=== PATIENT | male | born 2000 | race Two or more races ===

== ENCOUNTER 2020-08-02 05:35 | Emergency (ER) | payer MEDICAID, SELFPAY ==
[~2020-08-02] VITALS: Ht 172.7 cm; Wt 74.8 kg
[2020-08-02] MEDS ORDERED: CARBAMIDE PEROXIDE EAR DROPS 6.5%, 15ML LEFT EAR ONE (06:00)
[2020-08-02] MEDS ORDERED: CARBAMIDE PEROXIDE EAR DROPS 6.5%, 15ML ONE (06:15)
--- NOTE | 2020-08-02 06:29 | NUR ---
PT HAS C/O LEFT EAR DECREASED HEARING WITH DISCOMFORT. PT MEDICATED PER MAY.
--- NOTE | 2020-08-02 06:50 | NUR ---
REPORT TO JOEL FOWLER
--- NOTE | 2020-08-02 06:54 | NUR ---
Report from JANETH Mendoza. Pt laying in bed attempting to drain L ear of water. Will recheck.
[2020-08-02 07:33] VITALS: BP 131/79
== END 2020-08-02 07:37 | disposition home or self-care (01) ==
LOC: ED 06:35
DX: H60.502 Unspecified acute noninfective otitis externa, left ear (principal); H61.22 Impacted cerumen, left ear
CPT/HCPCS: 99283

== ENCOUNTER 2020-08-07 23:47 | Emergency (ER) | payer SELFPAY ==
[~2020-08-07] VITALS: Ht 172.7 cm; Wt 75.8 kg
[2020-08-08 00:04] VITALS: BP 135/87
--- NOTE | 2020-08-08 00:56 | NUR ---
PT TOLD RN THAT HE IS LEAVING
== END 2020-08-08 00:58 | disposition left against medical advice (07) ==
LOC: ED 08-08 00:40
DX: R51.9 Headache, unspecified (principal)
CPT/HCPCS: 99281

== ENCOUNTER 2020-08-12 11:42 | Emergency (ER) | payer SELFPAY ==
[~2020-08-12] VITALS: Ht 172.7 cm; Wt 74.1 kg
--- NOTE | 2020-08-12 11:55 | NUR ---
THIS IS A 20 YR OLD MALE WHO DENIES ANY MEDICAL HX AND DOES NOT SEEK MEDICAL CARE. PT STATES CIFUENTES FOR 7 DAYS NOW, PT HAS NO NEURO DEFICITS NOTED AND DENIES ANY NAUSEA, BLURRED VISION, OR NUMBNESS AND TINGLING PRESENT.
[2020-08-12] MEDS ORDERED: PROCHLORPERAZINE 5 MG/ML, 2ML IVPush ONE (12:00)
[2020-08-12] MEDS ORDERED: KETOROLAC 30 MG/1 ML IVPush ONE (12:00)
[2020-08-12] MEDS ORDERED: SODIUM CHLORIDE FLUSH 10ML SYR IVF ONE (12:00)
[2020-08-12] MEDS ORDERED: DIPHENHYDRAMINE 50 MG/ML, 1ML IVPush ONE (12:00)
[2020-08-12] MEDS ORDERED: KETOROLAC 30 MG/1 ML ONE (12:08)
[2020-08-12] MEDS ORDERED: PROCHLORPERAZINE 5 MG/ML, 2ML ONE (12:08)
[2020-08-12] MEDS ORDERED: DIPHENHYDRAMINE 50 MG/ML, 1ML ONE (12:08)
[2020-08-12 12:28] LABS: BASOPHILS % (AUTO) 1 % (0-1); EOSINOPHILS % (AUTO) 2 % (1-7); LYMPHOCYTES % (AUTO) 41 % (22-44); MEAN CORPUSCULAR HEMOGLOBIN 31.4 pg (27.5-34.5); MEAN CORPUSCULAR HGB CONC 34.4 g/dL (33.2-36.2); MEAN PLATELET VOLUME 8.1 fL (7.4-10.4); MONOCYTES % (AUTO) 7 % (2-9); NEUTROPHILS % (AUTO) 50 % (42-75); PLATELET COUNT 320 x10^3/uL (130-400); RED BLOOD COUNT 4.84 x10^6/uL (4.38-5.82); RED CELL DISTRIBUTION WIDTH 13.3 % (9.4-14.8)
[2020-08-12 12:40] LABS: ALANINE AMINOTRANSFERASE 33 U/L (12-78); ANION GAP 8 mmol/L (5-15); CALCIUM 8.4 mg/dL (8.5-10.1); CHLORIDE 110 mmol/L (98-107); CREATININE 0.92 mg/dL (0.7-1.3)
[2020-08-12 12:42] LABS: ALKALINE PHOSPHATASE 82 U/L (45-117); BILIRUBIN,TOTAL 0.2 mg/dL (0.2-1.0); TOTAL PROTEIN 7.4 g/dL (6.4-8.2)
[2020-08-12 12:48] LABS: MD NO
[2020-08-12 13:28] VITALS: BP 123/72
== END 2020-08-12 15:05 | disposition home or self-care (01) ==
LOC: ED 13:17
DX: R51.9 Headache, unspecified (principal); R00.0 Tachycardia, unspecified; Z87.891 Personal history of nicotine dependence
CPT/HCPCS: 36415; 70450; 80053; 85025; 96374; 96375; 99284; J0780; J1200; J1885